=== PATIENT | female | born 1935 ===

== ENCOUNTER 2017-09-10 23:45 | Observation (INO) | payer MEDICARE, BC ==
[~2017-09-10] VITALS: Ht 157.5 cm; Wt 65.0 kg
[~2017-09-10 23:45] MED LIST: ASPI81TA23 PO; BENI5TAB4 PO; BRIM0.155 EACH EYE; BYST2.5T2 PO; CITA40TA4 PO; DORZ2SOL EACH EYE; HYDR10TA23 PO; ISOS20TA PO; LORA0.5T PO; LUMI0.01 EACH EYE; OMEGA XL; PLAV75TA29 PO; QUET5TAB PO; SIMV20TA PO
[2017-09-10 23:46] VITALS: BP 147/75; PULSE 64; RESP 18; TEMP 97.4; O2SAT 95
[2017-09-11] VITALS (10 sets, daily range): BP systolic 103–154; BP diastolic 52–68; PULSE 56–70; RESP 16–20; TEMP 95.9–98; O2SAT 95–100
[2017-09-11] MEDS ORDERED: HYDR-3801 PO (00:03)
--- NOTE | 2017-09-11 00:12 | PD ---
HPI Chief Complaint: Neuro Symptoms/ Deficits Time Seen by Provider: 23:51 Travel History International Travel<30 days: No Contact w/Intl Traveler<30days: No Traveled to known affect area: No History of Present Illness HPI 81yo F with PMH of HTN and TIA presents to the ED with c/o left facial droop, left face numbness and difficulty speaking at around 10:30pm. Last normal was 9 :30pm. However, pt's symptoms have all resolved by the time she arrive at the ED. Denies any fever, chest pain, sob, n/v, abdominal pain, focal weakness or numbness. PFSH Past Medical History Arthritis: Yes Blood Disorders: No Anxiety: No Depression: Yes Heart Rhythm Problems: No Cancer: No Cardiac Catheterization: Yes Cardiovascular Problems: Yes (ASHD) High Cholesterol: Yes Chest Pain: No Congestive Heart Failure: No Dementia: Yes Diabetes: Yes Diminished Hearing: No Endocrine: No Gastrointestinal Disorders: No GERD: Yes Glaucoma: No Genitourinary: No Hepatitis: No Hiatal Hernia: No Hypertension: Yes Immune Disorder: No Kidney Stones: Yes Musculoskeletal: Yes Neurologic: No Psychiatric: No Reproductive: No Respiratory: Yes Integumentary: No Myocardial Infarction: Yes Sleep Apnea: Yes Thyroid Disease: No Tetanus Vaccination: Unknown Influenza Vaccination: No Menopausal: Yes Tubal Ligation: Yes Past Surgical History Abdominal Surgery: Yes (APPENDIX, GALLBLADER REMOVED, HEMRROIDS REMOVED) Appendectomy: Yes Cholecystectomy: Yes Coronary Stent: Yes Eye Surgery: Yes Gynecologic Surgery: Yes (HYSTERECTOMY/ TUBAL) Hysterectomy: Yes Other Surgery: Yes (APPENDECTOMY,RIGHT KNEE, BLADDER TUCK,) Social History Alcohol Use: No Tobacco Use: No Substance Use: No Allergies-Medications (Allergen,Severity, Reaction): Coded Allergies: No Known Allergies (Verified , 10/10/14) Reported Meds & Prescriptions Reported Meds & Active Scripts Active Aspirin EC (Aspirin) 81 Mg Tabdr 81 Mg PO DAILY STOP TAKING AUGUST 2016 Plavix (Clopidogrel Bisulfate) 75 Mg Tab 75 Mg PO DAILY Reported Hydralazine (Hydralazine HCl) 100 Mg Tab 10 Mg PO BID Take with meals Lumigan Opth Drops (Bimatoprost) 0.01% Soln 1 Drop EACH EYE HS Dorzolamide Opth Drops (Dorzolamide HCl) 2% Soln 1 Drop EACH EYE TID Brimonidine Opth Drops (Brimonidine Tartrate) 0.15% Soln 1 Drop EACH EYE TID Lorazepam 0.5 Mg Tab 0.5 Mg PO Q8H PRN Simvastatin 20 Mg Tab 20 Mg PO DAILY Bystolic (Nebivolol) 2.5 Mg Tab 2.5 Mg PO DAILY Isosorbide Mononitrate 20 Mg Tab 30 Mg PO DAILY Take 2 doses 7 hours apart. Benicar (Olmesartan) 5 Mg Tab 5 Mg PO BID Quetiapine (Quetiapine Fumarate) 50 Mg Tab 50 Mg PO DAILY Citalopram (Citalopram Hydrobromide) 40 Mg Tab 40 Mg PO DAILY Review of Systems Except as stated in HPI: all other systems reviewed are Neg Physical Exam Narrative GENERAL: 81yo F not in distress. SKIN: Focused skin assessment warm/dry. HEAD: Atraumatic. Normocephalic. EYES: Pupils equal and round. No scleral icterus. No injection or drainage. ENT: No nasal bleeding or discharge. Mucous membranes pink and moist. NECK: Trachea midline. No JVD. CARDIOVASCULAR: Regular rate and rhythm. No murmur appreciated. RESPIRATORY: No accessory muscle use. Clear to auscultation. Breath sounds equal bilaterally. GASTROINTESTINAL: Abdomen soft, non-tender, nondistended. MUSCULOSKELETAL: No obvious deformities. No clubbing. No cyanosis. No edema. NEUROLOGICAL: Awake and alert. No obvious cranial nerve deficits. Motor grossly within normal limits in all extremities. Sensation equal in all extremities. Normal speech. NIH stroke scale 0. PSYCHIATRIC: Appropriate mood and affect; insight and judgment normal. Data Data Last Documented VS Vital Signs Date Time Temp Pulse Resp B/P (MAP) Pulse Ox O2 Delivery O2 Flow Rate FiO2 09/11/17 00:03 56 16 154/68 (96) 100 Nasal Cannula 2.00 09/10/17 23:[address] Brain W/O Iv Contrast(Rout) (09/10/17 ) Complete Blood Count With Diff (09/10/17 23:59) Basic Metabolic Panel (Bmp) (09/10/17 23:59) Prothrombin Time / Inr (Pt) (09/10/17 23:59) Act Partial Throm Time (Ptt) (09/10/17 23:59) Electrocardiogram (09/11/17 ) Labs Laboratory Tests Test 09/10/17 23:55 White Blood Count 6.1 TH/MM3 Red Blood Count 4.79 MIL/MM3 Hemoglobin 14.3 GM/DL Hematocrit 41.9 % Mean Corpuscular Volume 87.5 FL Mean Corpuscular Hemoglobin 30.0 PG Mean Corpuscular Hemoglobin Concent 34.2 % Red Cell Distribution Width 13.3 % Platelet Count 290 TH/MM3 Mean Platelet Volume 7.2 FL Neutrophils (%) (Auto) 51.5 % Lymphocytes (%) (Auto) 29.7 % Monocytes (%) (Auto) 13.1 % Eosinophils (%) (Auto) 4.8 % Basophils (%) (Auto) 0.9 % Neutrophils # (Auto) 3.1 TH/MM3 Lymphocytes # (Auto) 1.8 TH/MM3 Monocytes # (Auto) 0.8 TH/MM3 Eosinophils # (Auto) 0.3 TH/MM3 Basophils # (Auto) 0.1 TH/MM3 CBC Comment DIFF FINAL Differential Comment Prothrombin Time 10.9 SEC Prothromb Time International Ratio 1.1 RATIO Activated Partial Thromboplast Time 26.8 SEC Blood Urea Nitrogen 16 MG/DL Creatinine 0.89 MG/DL Random Glucose 94 MG/DL Calcium Level 9.7 MG/DL Sodium Level 138 MEQ/L Potassium Level 4.2 MEQ/L Chloride Level 103 MEQ/L Carbon Dioxide Level 30.8 MEQ/L Anion Gap 4 MEQ/L Estimat Glomerular Filtration Rate 61 ML/MIN [facility] Medical Decision Making Medical Screen Exam Complete: Yes Emergency Medical Condition: Yes Interpretation(s) EKG: Sinus bradycardia at 57bpm. Normal axis. No ST segment elevation or depression. Differential Diagnosis TIA Narrative Course 81yo F with left facial droop, left facial numbness and difficulty speaking tonight which lasted about 15 minutes that was witnessed by her daughter. Pt's symptoms has all resolved. Pt had TIA back in June as well. CT brain negative. Labs reviewed, no leukocytosis. H/H normal. BMP unremarkable. Will admit for TIA work up. Diagnosis Primary Impression: TIA (transient ischemic attack) Qualified Codes: G45.9 - Transient cerebral ischemic attack, unspecified Admitting Information Admitting Physician Requests: Essie Iqbal DO Sep 11, 2017 00:12
[2017-09-11 00:26] LABS: AUTOMATED NEUTROPHIL # 3.1 TH/MM3 (1.8-7.7); BASOPHIL # 0.1 TH/MM3 (0-0.2); BASOPHIL % 0.9 % (0.0-2.0); EOSINOPHIL # 0.3 TH/MM3 (0-0.4); EOSINOPHIL % 4.8 % (0.0-4.0); HEMATOCRIT 41.9 % (35.0-46.0); HEMOGLOBIN 14.3 GM/DL (11.6-15.3); LYMPH % 29.7 % (9.0-44.0); LYMPHOCYTE # 1.8 TH/MM3 (1.0-4.8); MEAN CELL VOLUME 87.5 FL (80.0-100.0); MEAN CORPUSCULAR HGB CONC 34.2 % (32.0-36.0); MEAN PLATELET VOLUME 7.2 FL (7.0-11.0); MONO % 13.1 % (0.0-8.0); MONOCYTE # 0.8 TH/MM3 (0-0.9); NEUT % 51.5 % (16.0-70.0); PLATELET COUNT 290 TH/MM3 (150-450); RED BLOOD COUNT 4.79 MIL/MM3 (4.00-5.30); RED CELL DISTRIBUTION WIDTH 13.3 % (11.6-17.2); WHITE BLOOD COUNT 6.1 TH/MM3 (4.0-11.0)
[2017-09-11 00:36] LABS: BICARBONATE 30.8 MEQ/L (21.0-32.0); CALCIUM 9.7 MG/DL (8.5-10.1); CREATININE 0.89 MG/DL (0.50-1.00)
[2017-09-11 00:40] LABS: INTERNATIONAL NORMALIZED RATIO 1.1 RATIO; PROTHROMBIN TIME - PATIENT 10.9 SEC (9.8-11.6)
--- NOTE | 2017-09-11 01:01 | RADRPT ---
EXAM DATE/TIME: 09/11/2017 00:48 [facility] COMPARISON: CT BRAIN W/O CONTRAST, June 07, 2016, 14:33. INDICATIONS : Resolved left facial droop. RADIATION DOSE: 38.71 CTDIvol (mGy) MEDICAL HISTORY : Dementia. Myocardial infarction. Gastroesophageal reflux disease.Diabetes. Hypertension. SURGICAL HISTORY : Coronary artery stent. Tubal ligation.Hysterectomy.Appendectomy. Cholecystectomy. Bladder tack. ENCOUNTER: Initial ACUITY: 1 day PAIN SCALE: 0/10 LOCATION: cranial TECHNIQUE: Multiple contiguous axial images were obtained of the head. Using automated exposure control and adj ustment of the mA and/or kV according to patient size, radiation dose was kept as low as reasonably a chievable to obtain optimal diagnostic quality images. DICOM format image data is available electro nically for review and comparison. FINDINGS: CEREBRUM: Stable chronic lacunar protrusion involving the left basal ganglia. The ventricles are normal for age . No evidence of midline shift, mass lesion, hemorrhage or acute infarction. No extra-axial fluid c ollections are seen. POSTERIOR FOSSA: The cerebellum and brainstem are intact. The 4th ventricle is midline. The cerebellopontine angle i s unremarkable. EXTRACRANIAL: The visualized portion of the orbits is intact. SKULL: The calvaria is intact. No evidence of skull fracture. CONCLUSION: No acute disease. Jonathon Lora Jr., MD on September 11, 2017 at 0:58 Board Certified Radiologist. This report was verified electronically.
[2017-09-11] MEDS ORDERED: GADODIAMIDE PF 287 MG/ML 20 ML VIAL (for RAD MRI) IVCONTRAST ONE (01:19)
[2017-09-11] MEDS ORDERED: SODIUM CHLOR 0.9% 1000 ML INJ 1,000 ML IV SCH (01:22)
[2017-09-11] MEDS ORDERED: ACETAMINOPHEN 325 MG TAB PO PRN (01:30)
[2017-09-11] MEDS ORDERED: ACETAMINOPHEN/HYDROcodone 325 MG/10 MG TAB PO PRN (01:30)
[2017-09-11] MEDS ORDERED: BISACODYL 10 MG SUPP RECTAL PRN (01:30)
[2017-09-11] MEDS ORDERED: ACETAMINOPHEN/HYDROcodone 325 MG/5 MG TAB PO PRN (01:30)
[2017-09-11] MEDS ORDERED: MAGNESIUM HYDROXIDE SUSP 30 ML CUP PO PRN (01:30)
[2017-09-11] MEDS ORDERED: SENNOSIDES 8.6 MG TAB PO PRN (01:30)
[2017-09-11] MEDS ORDERED: SODIUM CHLORIDE 0.9% FLUSH 10 ML FLUSH IV FLUSH PRN (01:30)
[2017-09-11] MEDS ORDERED: LACTULOSE SYRUP 20 GM/30 ML CUP PO PRN (01:30)
[2017-09-11] MEDS ORDERED: ONDANSETRON HCL 4 MG/2 ML VIAL IVP PRN (01:30)
[2017-09-11] MEDS ORDERED: LORazepam 0.5 MG TAB PO PRN (01:30)
--- NOTE | 2017-09-11 03:11 | HHI.HP ---
HPI [facility] Primary Care Physician Joni Garrido MD Admission Diagnosis TIA Diagnoses: (1) TIA (transient ischemic attack) Diagnosis: Principal (2) HTN (hypertension) Diagnosis: Principal Travel History International Travel<30 Days: No Contact w/Intl Traveler <30 Da: No Traveled to Known Affected Are: No History of Present Illness This is an 81-year-old Ukrainian-speaking female with a PMH of HTN, Depression and h/o TIA/CVA who is brought to the ER by family secondary strokelike symptoms. Granddaughter is [employer] employee, currently at bedside with patient' s Daughter who states patient was noted to have acute onset of left-sided facial droop and left-sided numbness at approximately 22:30. Daughter notes some generalized weakness. Symptoms completely resolved by the time of arrival. Similar presentation 06/08/16, CT Head normal however MRI/MRA w/ small acute infarct left hemisphere at that time. On ASA daily. CT Head today w/ no acute findings. Review of Systems Except as stated in HPI: all other systems reviewed are Neg ROS: 14 point review of systems otherwise negative. Past Family Social History Past Medical History PMH: HTN, Depression and h/o TIA/CVA Past Surgical History PAST SURGICAL HISTORY: Appendectomy, Cholecystectomy, Hemorrhoid Removal, Eye Surgery, Hysterectomy, Right Knee Surgery, Bladder Tuck Allergies: Coded Allergies: No Known Allergies (Verified , 10/10/14) Family History PAST FAMILY HISTORY: Reviewed. No h/o DM or CAD Social History PAST SOCIAL HISTORY: Negative for alcohol, tobacco or drugs. Physical Exam Vital Signs Vital Signs Date Time Temp Pulse Resp B/P (MAP) Pulse Ox O2 Delivery O2 Flow Rate FiO2 09/11/17 01:30 60 16 132/60 (84) 100 Nasal Cannula 2.00 09/11/17 00:03 56 16 154/68 (96) 100 Nasal Cannula 2.00 09/10/17 23:46 97.4 64 18 147/75 (99) 95 Physical Exam PE: GENERAL: Extremely pleasant elderly female in no acute distress. Family at bedside. HEENT: PERRLA, EOMI. No scleral icterus or conjunctival pallor. No lid lag or facial droop. CARDIOVASCULAR: Regular rate and rhythm. No obvious murmurs to auscultation. No chest tenderness to palpation. RESPIRATORY: No obvious rhonchi or wheezing. Clear to auscultation. Breath sounds equal bilaterally. GASTROINTESTINAL: Abdomen soft, non-tender, nondistended. BS normal. MUSCULOSKELETAL: Extremities without clubbing, cyanosis, or edema. No obvious deformities. NEUROLOGICAL: Awake, alert and oriented x4. No focal neurologic deficits. Moving both upper and lower extremities spontaneously. Laboratory Laboratory Tests Test 09/10/17 23:55 White Blood Count 6.1 Red Blood Count 4.79 Hemoglobin 14.3 Hematocrit 41.9 Mean Corpuscular Volume 87.5 Mean Corpuscular Hemoglobin 30.0 Mean Corpuscular Hemoglobin Concent 34.2 Red Cell Distribution Width 13.3 Platelet Count 290 Mean Platelet Volume 7.2 Neutrophils (%) (Auto) 51.5 Lymphocytes (%) (Auto) 29.7 Monocytes (%) (Auto) 13.1 Eosinophils (%) (Auto) 4.8 Basophils (%) (Auto) 0.9 Neutrophils # (Auto) 3.1 Lymphocytes # (Auto) 1.8 Monocytes # (Auto) 0.8 Eosinophils # (Auto) 0.3 Basophils # (Auto) 0.1 CBC Comment DIFF FINAL Differential Comment Prothrombin Time 10.9 Prothromb Time International Ratio 1.1 Activated Partial Thromboplast Time 26.8 Blood Urea Nitrogen 16 Creatinine 0.89 Random Glucose 94 Calcium Level 9.7 Sodium Level 138 Potassium Level 4.2 Chloride Level 103 Carbon Dioxide Level 30.8 Anion Gap 4 Estimat Glomerular Filtration Rate 61 Result Diagram: 09/10/17235409/10/172354 Caprini VTE Risk Assessment Caprini VTE Risk Assessment: No/Low Risk (score <= 1) Caprini Risk Assessment Model Point Value = 1 Point Value = 2 Point Value = 3 Point Value = 5 Age 41-60 Minor surgery BMI > 25 kg/m2 Swollen legs Varicose veins or History of unexplained or recurrent spontaneous Oral contraceptives or hormone replacement Sepsis (< 1 month) Serious lung disease, including pneumonia (< 1 month) Abnormal pulmonary function Acute myocardial infarction Congestive heart failure (< 1 month) History of inflammatory bowel disease Medical patient at bed rest Age 61-74 Arthroscopic surgery Major open surgery (> 45 min) Laparoscopic surgery (> 45 min) Malignancy Confined to bed (> 72 hours) Immobilizing plaster cast Central venous access Age >= 75 History of VTE Family history of VTE Factor V Leiden Prothrombin [id number] Lupus anticoagulant Anticardiolipin antibodies Elevated serum homocysteine Heparin-induced thrombocytopenia Other congenital or acquired thrombophilia Stroke (< 1 month) Elective arthroplasty Hip, pelvis, or leg fracture Acute spinal cord injury (< 1 month) Prophylaxis Regimen Total Risk Factor Score Risk Level Prophylaxis Regimen 0-1 Low Early ambulation 2 Moderate Order ONE of the following: *Sequential Compression Device (SCD) *Heparin 5000 units SQ BID 3-4 Higher Order ONE of the following medications: *Heparin 5000 units SQ TID *Enoxaparin/Lovenox 40 mg SQ daily (WT < 150 kg, CrCl > 30 mL/min) *Enoxaparin/Lovenox 30 mg SQ daily (WT < 150 kg, CrCl > 10-29 mL/min) *Enoxaparin/Lovenox 30 mg SQ BID (WT < 150 kg, CrCl > 30 mL/min) AND/OR *Sequential Compression Device (SCD) 5 or more Highest Order ONE of the following medications: *Heparin 5000 units SQ TID (Preferred with Epidurals) *Enoxaparin/Lovenox 40 mg SQ daily (WT < 150 kg, CrCl > 30 mL/min) *Enoxaparin/Lovenox 30 mg SQ daily (WT < 150 kg, CrCl > 10-29 mL/min) *Enoxaparin/Lovenox 30 mg SQ BID (WT < 150 kg, CrCl > 30 mL/min) AND *Sequential Compression Device (SCD) Assessment and Plan Problem List: (1) TIA (transient ischemic attack) ICD Code: G45.9 - Transient cerebral ischemic attack, unspecified Status: Acute (2) HTN (hypertension) ICD Code: I10 - Essential (primary) hypertension Status: Acute Assessment and Plan A/P: 1. TIA: acute onset of left facial droop and left-facial numbness, completely resolved by the time of arrival. CT Head w/ no acute findings, images reviewed by me. H/o similar symptoms 06/08/16 w/ MRI showing small infarct left hemisphere. On ASA daily, will continue. Check MRI/MRA. Neuro checks. Consult Neurology for further recommendations. 2. HTN: BP 150's, will hold antihypertensives in light of TIA/CVA. Monitor BP. 3. DVT Prophylaxis: SCD/teds. 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 5. Case discussed at length with ER physician, lab/records/imaging reviewed by me. Problem Qualifiers (1) TIA (transient ischemic attack): Qualified Codes: G45.9 - Transient cerebral ischemic attack, unspecified Heaven Davila MD Sep 11, 2017 03:11
[2017-09-11 08:56] LABS: AUTOMATED NEUTROPHIL # 2.9 TH/MM3 (1.8-7.7); BASOPHIL % 0.9 % (0.0-2.0); EOSINOPHIL # 0.3 TH/MM3 (0-0.4); HEMATOCRIT 38.8 % (35.0-46.0); HEMOGLOBIN 13.3 GM/DL (11.6-15.3); LYMPH % 25.8 % (9.0-44.0); LYMPHOCYTE # 1.4 TH/MM3 (1.0-4.8); MEAN CELL VOLUME 87.3 FL (80.0-100.0); MEAN CORPUSCULAR HEMOGLOBIN 29.9 PG (27.0-34.0); MEAN CORPUSCULAR HGB CONC 34.3 % (32.0-36.0); MEAN PLATELET VOLUME 7.2 FL (7.0-11.0); MONO % 13.7 % (0.0-8.0); MONOCYTE # 0.7 TH/MM3 (0-0.9); NEUT % 54.6 % (16.0-70.0); PLATELET COUNT 265 TH/MM3 (150-450); RED BLOOD COUNT 4.44 MIL/MM3 (4.00-5.30); RED CELL DISTRIBUTION WIDTH 13.3 % (11.6-17.2); WHITE BLOOD COUNT 5.3 TH/MM3 (4.0-11.0)
[2017-09-11] MEDS: DORZOLAMIDE 2% OPTH SOLN 200 DROP/10 ML BTLO EACH EYE SCH ×3 (09:00→18:00)
[2017-09-11] MEDS ORDERED: QUEtiapine FUMARATE 25 MG TAB PO SCH (09:00)
[2017-09-11] MEDS: BRIMONIDINE TARTRATE 0.15% OPHT SOLN 5 ML BTL EACH EYE SCH ×4 (09:00→22:09)
[2017-09-11 09:22] LABS: ALBUMIN 3.4 GM/DL (3.4-5.0); AST (GOT) 11 U/L (15-37); BICARBONATE 26.1 MEQ/L (21.0-32.0); BLOOD UREA NITROGEN 12 MG/DL (7-18); CHLORIDE 104 MEQ/L (98-107); GLOMERULAR FILTRATION RATE 81 ML/MIN (>89); GLUCOSE,RANDOM 93 MG/DL (74-106); SODIUM (NA) 138 MEQ/L (136-145)
[2017-09-11 09:28] LABS: ALKALINE PHOSPHATASE 66 U/L (45-117); ALT (GPT) 17 U/L (10-53); TOTAL BILIRUBIN ADULT 0.5 MG/DL (0.2-1.0); TOTAL PROTEIN 6.3 GM/DL (6.4-8.2)
--- NOTE | 2017-09-11 11:52 | HHI.PR ---
Subjective Remarks Follow up for TIA. The patient is Indian-speaking only, therefore used translation line. The patient does not have any recollection of events leading up to her admission. She states she feels good. Denies any headache, lightheadedness, dizziness, visual changes, chest pain, palpitations, shortness of breath, unilateral numbness/weakness, abdominal pain, nausea/vomiting, or diarrhea. She states she is eating well. Per RN, the patient has baseline dementia. Currently she is oriented to self and hospital. She ambulated well with PT. She does not know which medications she stakes, however [facility] reports the patient is on both aspirin and plavix. The patient has no other medical complaints at this time. Objective Vitals Vital Signs Date Time Temp Pulse Resp B/P (MAP) Pulse Ox O2 Delivery O2 Flow Rate FiO2 09/11/17 08:34 62 16 97 09/11/17 08:00 95.9 66 20 134/62 (86) 95 09/11/17 06:00 58 16 103/52 (69) 96 Room Air 09/11/17 04:00 56 16 121/57 (78) 96 Room Air 09/11/17 03:00 58 16 131/57 (81) 96 Room Air 09/11/17 01:30 60 16 132/60 (84) 100 Nasal Cannula 2.00 09/11/17 00:03 56 16 154/68 (96) 100 Nasal Cannula 2.00 09/10/17 23:46 97.4 64 18 147/75 (99) 95 Result Diagram: 09/11/17 0739 09/11/17 0739 Imaging Last Impressions Head CT 09/10/17 0000 Signed Impressions: Service Date/Time: Monday, September 11, 2017 00:48 - CONCLUSION: No acute disease. Jonathon Lora Jr., MD Objective Remarks GENERAL: Well-nourished, well-developed elderly female patient in [facility]. SKIN: Warm and dry. No rash. HEENT: Normocephalic. Atraumatic. Pupils equal and round. Mucous membranes pink and moist. NECK: Supple. Trachea midline. CARDIOVASCULAR: Regular rate and rhythm. S1, S2 noted. No murmur appreciated. RESPIRATORY: No accessory muscle use. Clear to auscultation. Breath sounds equal bilaterally. GASTROINTESTINAL: Abdomen soft, non-tender, nondistended. Normoactive bowel sounds x4. MUSCULOSKELETAL: No obvious deformities. Extremities without clubbing, cyanosis , or edema. NEUROLOGICAL: Awake and alert. No obvious cranial nerve deficits. Motor grossly within normal limits. 5/5 muscle strength in bilateral upper and lower extremities. Normal speech. No facial droop/lid lag/tongue deviation. PSYCHIATRIC: Appropriate mood and affect; insight and judgment limited. Medications and IVs Current Medications Medications (Trade) Dose Ordered Sig/Connor Route Start Time Stop Time Status Last Admin Sodium Chloride 1,000 ml @ 100 mls/hr Q10H IV 09/11/17 01:22 (NS Flush) 2 ml UNSCH PRN IV FLUSH 09/11/17 01:30 (NS Flush) 2 ml BID IV FLUSH 09/11/17 09:00 (Zofran Inj) 4 mg Q6H PRN IVP 09/11/17 01:30 (Tylenol) 650 mg Q6H PRN PO 09/11/17 01:30 ([place] 5-325 Mg) 1 tab Q4H PRN PO 09/11/17 01:30 ([place] 10-325 Mg) 1 tab Q4H PRN PO 09/11/17 01:30 ([place]-Colace) 1 tab BID PO 09/11/17 09:00 (Milk Of Magnesia Liq) 30 ml Q12H PRN PO 09/11/17 01:30 (Senokot) 17.2 mg Q12H PRN PO 09/11/17 01:30 (Dulcolax Supp) 10 mg DAILY PRN RECTAL 09/11/17 01:30 (Lactulose Liq) 30 ml DAILY PRN PO 09/11/17 01:30 (Ecotrin Ec) 81 mg DAILY PO 09/11/17 09:00 (Alphagan P 0.15% Opth Soln) 1 drop TID EACH EYE 09/11/17 09:00 (CeleXA) 40 mg DAILY PO 09/11/17 09:00 (Plavix) 75 mg DAILY PO 09/11/17 09:00 (Trusopt 2% Opth Soln) 1 drop TID EACH EYE 09/11/17 09:00 (Ativan) 0.5 mg Q8H PRN PO 09/11/17 01:30 (Xalatan 0.005% Opth Soln) 1 drop HS EACH EYE 3/12/18 21:00 (SEROquel) 50 mg DAILY PO 09/11/17 09:00 (Pravachol) 40 mg DAILY PO 09/11/17 09:00 A/P Problem List: (1) TIA (transient ischemic attack) ICD Code: G45.9 - Transient cerebral ischemic attack, unspecified Status: Acute (2) HTN (hypertension) ICD Code: I10 - Essential (primary) hypertension Status: Acute Assessment and Plan 81-year-old Indian-speaking female with a PMH of HTN, Depression and h/o TIA/ CVA who is brought to the ER by family secondary strokelike symptoms. TIA: patient with acute onset of left facial droop and left-facial numbness, completely resolved by the time of arrival. H/o similar symptoms 06/08/16 w/ MRI showing small infarct left hemisphere. Echo 06/08/16 with EF 55-60%. -CT Head w/ no acute findings, images reviewed by me. -Brain MRI and Neck MRA results pending -On ASA and plavix daily, will continue for now -Continue statin -Monitor neuro checks. -Monitor on telemetry -Check HgbA1c, lipid panel -Consulted PT/OT, no PT needed at discharge -Consult Neurology for further recommendations, may need to adjust anticoagulation. HTN: BP currently stable -holding antihypertensives in light of TIA/CVA. -Monitor BP for now. DVT Prophylaxis: SCD/teds. Discharge Planning Discharge when cleared by neurology. Problem Qualifiers (1) TIA (transient ischemic attack): Qualified Codes: G45.9 - Transient cerebral ischemic attack, unspecified Yolanda Jones PA-C Sep 11, 2017 11:52 am
[2017-09-11] MEDS: PRAVASTATIN SOD 40 MG TAB PO SCH (11:57)
[2017-09-11] MEDS: DOCUSATE SODIUM 50 MG/SENNA 8.6 MG TAB PO SCH ×2 (11:57→22:09)
[2017-09-11] MEDS: CLOPIDOGREL 75 MG TAB PO SCH (11:57)
[2017-09-11] MEDS: CITALOPRAM HYDROBROMIDE 40 MG TAB PO SCH (11:57)
[2017-09-11] MEDS: ASPIRIN EC 81 MG TABEC PO SCH (11:58)
[2017-09-11] MEDS: SODIUM CHLORIDE 0.9% FLUSH 10 ML FLUSH IV FLUSH SCH ×2 (11:59→21:00)
--- NOTE | 2017-09-11 12:27 | RADRPT ---
EXAM DATE/TIME: 09/11/2017 10:41 [facility] COMPARISON: MRI BRAIN W/O CONTRAST, September 11, 2017, 10:41. MRA BRAIN W/O CONTRAST, June 08, 2016, 14:37. INDICATIONS : TIA. CONTRAST: 20 cc Omniscan (gadodiamide) IV MEDICAL HISTORY : Hypertension. Dementia. Myocardial infarction. SURGICAL HISTORY : Appendectomy. Cholecystectomy. Coronary artery stent. ENCOUNTER: Initial ACUITY: 2 day PAIN SCORE: 0/10 LOCATION: Neck Percent stenosis is calculated using the diameter of the stenotic region over the diameter of the nor mal distal internal carotid artery. TECHNIQUE: Bolus infused MRA of the extracranial circulation was performed using a neurovascular coil. Post pro cessing was performed including rotating subvolume maximum intensity projections of each carotid ingrid ry, rotating full volume maximum intensity projections of both carotid arteries, sagittal and coronal sliding thin slab reformations of each carotid artery, and left oblique sliding thin slab reformatio n through the aortic arch to include the origin of the arch branch vessels. FINDINGS: AORTIC ARCH: There is a three vessel origin of the great vessels from the aorta. No evidence of ostial narrowing. RIGHT CAROTID: The common carotid artery is intact. The carotid bulb has a normal configuration without ulceration or narrowing. The internal carotid artery lumen is smooth without stenosis. The external carotid ar elayne is intact. LEFT CAROTID: The common carotid artery is intact. The carotid bulb has a normal configuration without ulceration or narrowing. The internal carotid artery lumen is smooth without stenosis. The external carotid ar elayne is intact. VERTEBRALS: The vertebral arteries have a symmetric diameter. No stenotic lesions are seen. CONCLUSION: 1. The carotid and vertebral circulation is widely patent bilaterally. 2. The right MCA circulation is not well-visualized. The exam was not tailored to assess this. MRI im aging of the brain is pending. Jhony Cooper MD on September 11, 2017 at 12:23 Board Certified Radiologist. This report was verified electronically.
--- NOTE | 2017-09-11 12:37 | RADRPT ---
EXAM DATE/TIME: 09/11/2017 10:41 [facility] COMPARISON: No previous studies available for comparison. INDICATIONS : TIA. MEDICAL HISTORY : Hypertension. Dementia. Gastroesophageal reflux disease. SURGICAL HISTORY : Appendectomy. Cholecystectomy. Coronary artery stent. ENCOUNTER: Initial ACUITY: 2 day PAIN SCORE: 0/10 LOCATION: head TECHNIQUE: Multiplanar, multisequence MRI of the brain was performed without contrast. FINDINGS: There is a small area of encephalomalacia in the inferior right cerebellum probably from remote infar ct. No acute infarct identified on today's examination. Minimal white matter ischemic changes. No mas s effect, hemorrhage or shift. No hydrocephalus. No abnormal extra-axial fluid collections. CONCLUSION: 1. No acute findings. No recent infarct identified. Aubrey Chavez MD on September 11, 2017 at 12:31 Board Certified Radiologist. This report was verified electronically.
--- NOTE | 2017-09-11 14:34 | MB ---
cc: Jasmine Matamoros MD DATE OF CONSULT: 09/11/2017 REASON FOR CONSULTATION: TIA. HISTORY OF PRESENT ILLNESS: This is an 81-year-old woman with a history of hypertension, depression, dementia and a history of a possible TIA in the past comes in for stroke-like symptoms. Apparently daughter is at bedside. I spoke to her last night on the phone about 10:30 and she sounded slurred. Symptoms have resolved now, but she was given some Seroquel about 11 o'clock today so she is very sleepy. She is awake and alert, pleasant. Her speech is normal. Pupils are reactive. Face is symmetrical. Motor baxter, I do not see any lateralizing weakness. DTRs are 1+. Toes withdraw. Gait is withheld. LABS: The labs are reviewed. Her CBC is really unremarkable. Coagulation panel is normal. Chemistries, GFR is 81. IMAGING: MRI of the brain did not show any acute pathology. MRA shows some right MCA is, not well visualized on that. MEDICATIONS: Her home medications are: Baby aspirin, but she stopped that in August and Plavix 75 mg daily, hydralazine, Lumigan, dorzolamide, , lorazepam, simvastatin, Bystolic, Imdur, Benicar, Seroquel at bedtime and citalopram. RECOMMENDATIONS: Possible TIA could have been her sleep night-time medications such as Seroquel, but would recommend continuing her on the baby aspirin and Plavix. We will keep that for 3 months and then we will stop the aspirin in 3 months and stay on Plavix. Her last echo in 06/17 had a normal EF. I do not think that is up high to repeat. We will have her get out of bed with physical therapy to assess her. Unfortunately, she had her Seroquel today. Do not give it tonight and restart her tomorrow night. We will check a lipid panel and start her on a statin if indicated, hemoglobin A1c and if stable, can be discharged from the neurology perspective tomorrow. Jamsine Matamoros MD DF/DL/rr , 01:59 PM , 02:16 PM
[2017-09-11] MEDS ORDERED: SERO25TA PO (15:38)
[2017-09-11 17:28] LABS: HEMOGLOBIN A1C 6.2 % (4.3-6.0)
--- NOTE | 2017-09-11 18:40 | EKG ---
Date Performed: 09/10/2017 Time Performed: 23:59:44 PTAGE: 81 years EKG: SINUS BRADYCARDIA BORDERLINE ECG PREVIOUS TRACING : 06/07/2016 14.22 Since the prior tracing, there has been no significant rivera DOCTOR: Kamila Santiago Interpretating Date/Time 09/11/2017 18:38:36
[2017-09-11] MEDS ORDERED: LATANOPROST 0.005% OPHT SOLN 2.5 ML BTL EACH EYE SCH (21:00)
[2017-09-12 00:35] VITALS: BP 149/65; PULSE 64; RESP 18; TEMP 98; O2SAT 97
[2017-09-12 05:05] VITALS: BP 139/74; PULSE 74; RESP 18; TEMP 98; O2SAT 98
[2017-09-12 07:44] VITALS: BP 157/68; PULSE 69; RESP 16; TEMP 97.9; O2SAT 97
[2017-09-12 08:00] VITALS: PULSE 59
[2017-09-12 08:06] LABS: CHOLESTEROL/ HDL RATIO 2.34 RATIO; HDL CHOLESTEROL 64.8 MG/DL (40.0-60.0)
[2017-09-12] MEDS: CLOPIDOGREL 75 MG TAB PO SCH (08:44)
[2017-09-12] MEDS: CITALOPRAM HYDROBROMIDE 40 MG TAB PO SCH (08:44)
[2017-09-12] MEDS: PRAVASTATIN SOD 40 MG TAB PO SCH (08:44)
[2017-09-12] MEDS: ASPIRIN EC 81 MG TABEC PO SCH (08:44)
[2017-09-12] MEDS: SODIUM CHLORIDE 0.9% FLUSH 10 ML FLUSH IV FLUSH SCH (08:44)
--- NOTE | 2017-09-12 11:59 | HHI.DS ---
Discharge Summary Admission Date Sep 11, 2017 at 01:18 Discharge Date: Sep 12, 2017 Admitting Diagnosis TIA (1) TIA (transient ischemic attack) ICD Code: G45.9 - Transient cerebral ischemic attack, unspecified Status: Acute (2) HTN (hypertension) ICD Code: I10 - Essential (primary) hypertension Status: Acute Procedures none Brief History - From Admission This is an 81-year-old Portuguese-speaking female with a PMH of HTN, Depression and h/o TIA/CVA who is brought to the ER by family secondary strokelike symptoms. Granddaughter is [employer] employee, currently at bedside with patient' s Daughter who states patient was noted to have acute onset of left-sided facial droop and left-sided numbness at approximately 22:30. Daughter notes some generalized weakness. Symptoms completely resolved by the time of arrival. Similar presentation 06/08/16, CT Head normal however MRI/MRA w/ small acute infarct left hemisphere at that time. On ASA daily. CT Head today w/ no acute findings. CBC/BMP: 09/11/17 0739 09/11/17 0739 Significant Findings Laboratory Tests Test 09/10/17 23:55 09/11/17 07:39 09/12/17 05:55 Monocytes (%) (Auto) 13.1 % (0.0-8.0) 13.7 % (0.0-8.0) Eosinophils (%) (Auto) 4.8 % (0.0-4.0) 5.0 % (0.0-4.0) Anion Gap 4 MEQ/L (5-15) Estimat Glomerular Filtration Rate 61 ML/MIN (>89) 81 ML/MIN (>89) Total Protein 6.3 GM/DL (6.4-8.2) Aspartate Amino Transf (AST/SGOT) 11 U/L (15-37) Hemoglobin A1c 6.2 % (4.3-6.0) HDL Cholesterol 64.8 MG/DL (40.0-60.0) Imaging Last Impressions Neck Magnetic Resonance Angiography 09/11/17 0000 Signed Impressions: Service Date/Time: Monday, September 11, 2017 10:41 - CONCLUSION: 1. The carotid and vertebral circulation is widely patent bilaterally. 2. The right MCA circulation is not well-visualized. The exam was not tailored to assess this. MRI imaging of the brain is pending. Jhony Cooper MD Brain MRI 09/11/17 0000 Signed Impressions: Service Date/Time: Monday, September 11, 2017 10:41 - CONCLUSION: 1. No acute findings. No recent infarct identified. Aubrey Chavez MD Head CT 09/10/17 0000 Signed Impressions: Service Date/Time: Monday, September 11, 2017 00:48 - CONCLUSION: No acute disease. Jonathon Lora Jr., MD PE at Discharge GENERAL: Well-nourished, well-developed elderly female patient in [facility]. SKIN: Warm and dry. No rash. HEENT: Normocephalic. Atraumatic. Pupils equal and round. Mucous membranes pink and moist. NECK: Supple. Trachea midline. CARDIOVASCULAR: Regular rate and rhythm. S1, S2 noted. No murmur appreciated. RESPIRATORY: No accessory muscle use. Clear to auscultation. Breath sounds equal bilaterally. GASTROINTESTINAL: Abdomen soft, non-tender, nondistended. Normoactive bowel sounds x4. MUSCULOSKELETAL: No obvious deformities. Extremities without clubbing, cyanosis , or edema. NEUROLOGICAL: Awake and alert. No obvious cranial nerve deficits. Motor grossly within normal limits. 5/5 muscle strength in bilateral upper and lower extremities. Normal speech. No facial droop/lid lag/tongue deviation. PSYCHIATRIC: Appropriate mood and affect; insight and judgment limited. Pt update on day of discharge In bed appears in [facility]. Feels improved and at her baseline. No new motor deficit ./No n/v/d/c. No cp or sob. Hospital Course 81-year-old Portuguese-speaking female with a PMH of HTN, Depression and h/o TIA/ CVA who is brought to the ER by family secondary strokelike symptoms. TIA: patient with acute onset of left facial droop and left-facial numbness, completely resolved by the time of arrival. H/o similar symptoms 06/08/16 w/ MRI showing small infarct left hemisphere. Echo 06/08/16 with EF 55-60%. -CT Head w/ no acute findings, images reviewed by me. -Brain MRI and Neck MRA results pending -On ASA and plavix daily, will continue for now -Continue statin -Monitor neuro checks. -Monitor on telemetry -HgbA1c at 6,2 diet and exercise, follow up as OP , lipid panel normal -Consulted PT/OT, no PT needed at discharge -Consult Neurology for further recommendations, may need to adjust anticoagulation. HTN: BP currently stable -holding antihypertensives in light of TIA/CVA. -Monitor BP for now. DVT Prophylaxis: SCD/teds. Discharge Planning Improved, cleared by neuro for DC To follow up as OP with PCP and consultants Pt Condition on Discharge: Stable Discharge Disposition: Discharge to SNF Discharge Time: > 30 minutes Discharge Instructions DIET: Follow Instructions for: Heart Healthy Diet, Diabetic Diet Additional Diet Instructions: Borderline Diabetic HgA1C 6.2. Avoid concentrated sweets and high carb diet. Activities you can perform: Regular-No Restrictions Activities to Avoid: Driving for 24 hrs Follow up Referrals: Neurology - 2 Weeks PCP Follow-up - 1 Week Continued Medications: Aspirin DR (Aspirin EC) 81 Mg Tabdr 81 MG PO DAILY for Stroke Prevention, #30 TAB 0 Refills STOP TAKING AUGUST 2016 Bimatoprost Opth Drops (Lumigan Opth Drops) 0.01% Soln 1 DROP EACH EYE HS for Intraocular Pressure, #1 BOTTLE 0 Refills Brimonidine Opth Drops (Brimonidine Opth Drops) 0.15% Soln 1 DROP EACH EYE TID for Intraocular pressure, #1 BOTTLE 0 Refills Citalopram (Citalopram) 40 Mg Tab 40 MG PO DAILY for Control Depression, #30 TAB 0 Refills Clopidogrel (Plavix) 75 Mg Tab 75 MG PO DAILY for Stroke Prevention, #30 TAB 0 Refills Dorzolamide Opth Drops (Dorzolamide Opth Drops) 2% Soln 1 DROP EACH EYE TID for Glaucoma, #1 BOTTLE 0 Refills Isosorbide Mononitrate (Isosorbide Mononitrate) 20 Mg Tab 30 MG PO DAILY for Prevent Chest Pain, #60 TAB 0 Refills Take 2 doses 7 hours apart. Lorazepam (Lorazepam) 0.5 Mg Tab 0.5 MG PO Q8H PRN for ANXIETY, TAB 0 Refills Nebivolol (Bystolic) 2.5 Mg Tab 2.5 MG PO DAILY for Blood Pressure Management, #30 TAB 0 Refills Olmesartan (Benicar) 5 Mg Tab 5 MG PO BID for Blood Pressure Management, #30 TAB 0 Refills Quetiapine (Seroquel) 25 Mg Tab 25 MG PO HS, #30 TAB 0 Refills Simvastatin (Simvastatin) 20 Mg Tab 20 MG PO DAILY for Cholesterol Management, #30 TAB 0 Refills Discontinued Medications: Hydralazine (Hydralazine) 100 Mg Tab 10 MG PO BID for Blood Pressure Management, TAB 0 Refills Take with meals Quetiapine (Quetiapine) 50 Mg Tab 50 MG PO DAILY, #30 TAB 0 Refills Sharon Kendall MD Sep 12, 2017 11:59
[2017-09-12] MEDS ORDERED: QUEtiapine FUMARATE 25 MG TAB PO SCH (21:00)
== END 2017-09-12 12:13 | disposition home or self-care (01) ==
LOC: NEPC 23:45 → NEDH 09-11 01:18 → NEDA 09-11 09:23 → NEDH 09-11 10:17 → NEPGCP 09-11 12:43
PROVIDERS: ADMIT Hospitalist; ATTEND Hospitalist
DX: G45.9 Transient cerebral ischemic attack, unspecified (principal); R00.1 Bradycardia, unspecified; I10 Essential (primary) hypertension; E78.00 Pure hypercholesterolemia, unspecified; E11.9 Type 2 diabetes mellitus without complications; F03.90 Unspecified dementia, unspecified severity, without behavioral disturbance, psychotic disturbance, mood disturbance, and anxiety; K21.9 Gastro-esophageal reflux disease without esophagitis; I25.2 Old myocardial infarction; G93.89 Other specified disorders of brain; G47.30 Sleep apnea, unspecified; F41.9 Anxiety disorder, unspecified; F32.9 Major depressive disorder, single episode, unspecified; Z79.899 Other long term (current) drug therapy; Z79.82 Long term (current) use of aspirin; Z79.02 Long term (current) use of antithrombotics/antiplatelets; Z95.5 Presence of coronary angioplasty implant and graft
CPT/HCPCS: 70450; 70548; 70551; 80048; 80053; 80061; 83036; 85025; 85610; 85730; 93005; 97162; 97166; 99285; A9579; G0378; G8987; G8988; G8989